=== PATIENT | female | born 1945 | race Caucasian/White ===

== ENCOUNTER 2019-11-23 17:53 | Observation (INO) ==
[2019-11-23] MEDS ORDERED: IOPAMIDOL 100 ML BOTTLE IV ONE (17:54)
[2019-11-23] MEDS ORDERED: LACTATED RINGERS 1,000 ML IV ONE (18:23)
[2019-11-23] MEDS ORDERED: ONDANSETRON 4 MG/2 ML VIAL IV ONE (18:23)
--- NOTE | 2019-11-23 18:25 | Emergency Department Note ---
Abdominal Pain HPI - General Chief Complaint: Abdominal Pain Stated Complaint: ABDOMINAL PAIN Time Seen by Provider: 11/23/19 17:58 Source: patient Mode of arrival: ambulatory Limitations: no limitations - History of Present Illness HPI Narrative: This patient started having abdominal crampy pain this morning about 10 AM. No diarrhea and has been passing some gas and has slight nausea but no vomiting. No previous abdominal surgery. Pain is diffuse and crampy in the periumbilical to epigastric region. - Related Data Home Medications Medication Instructions Recorded Confirmed ascorbate calcium (vitamin C) 500 1 g PO QDAY tab 11/22/19 11/22/19 mg tablet duloxetine 30 mg capsule,delayed 30 mg PO QDAY 11/22/19 11/22/19 release duloxetine 60 mg capsule,delayed 60 mg PO QDAY 11/22/19 11/22/19 release ergocalciferol (vitamin D2) 2,000 2,000 unit PO QDAY 11/22/19 11/22/19 unit tablet ergocalciferol (vitamin D2) 400 400 unit PO QDAY 11/22/19 unit tablet gabapentin 300 mg capsule 1,800 mg PO QDAY cap 11/22/19 11/22/19 guaifenesin 400 mg tablet 400 mg PO QDAY tab 11/22/19 11/22/19 omega-3 fatty acids 1,000 mg 2,000 mg PO QDAY 11/22/19 11/22/19 capsule polyethylene glycol 3350 17 17 g PO ONCE PRN g 11/22/19 11/22/19 gram/dose oral powder propranolol 20 mg tablet 60 mg PO QDAY tab 11/22/19 11/22/19 terbinafine HCl 250 mg tablet 250 mg PO QDAY 11/22/19 tizanidine 2 mg capsule 4 mg PO QHS cap 11/22/19 11/22/19 verapamil 120 mg tablet,extended 120 mg PO QPM tab 11/22/19 11/22/19 release Previous Rx's Medication Instructions Recorded verapamil 120 mg 24 hr 120 mg PO QHS #30 cap 11/17/19 capsule,extended release Allergies Allergy/AdvReac Type Severity Reaction Status Date / Time omeprazole Allergy Severe Cognitive Verified 11/23/19 17:58 Impairment tetracycline Allergy Severe Unknown Verified 11/23/19 17:58 carbidopa [From Sinemet] Allergy Intermediate Hives Verified 11/23/19 17:58 levodopa [From Sinemet] Allergy Intermediate Hives Verified 11/23/19 17:58 Review of Systems All systems ED: reviewed and negative except as stated. Abdominal Pain PMH - Past Medical History [facility] Narrative: Medical History (Last Updated 11/22/19 @ 11:49 by Soila Licona) Fatigue (Chronic) Depression (Chronic) Hyperlipidemia (Chronic) DDD (degenerative disc disease), cervical (Chronic) Adnexal mass (Chronic) Ingrowing nail (Chronic) Onychomycosis (Chronic) Charcot's joint of foot (Chronic) Neck pain (Chronic) Low back pain (Chronic) Tremor (Chronic) Osteoarthritis (Chronic) IBS (irritable bowel syndrome) (Chronic) Constipation (Chronic) Dysphagia (Chronic) Impingement syndrome, shoulder, left (Chronic ~08/2012) Raynauds phenomenon (Chronic) PMR (polymyalgia rheumatica) (Chronic) Fibromyalgia (Chronic) Chronic migraine without aura, intractable, without status migrainosus (Chronic) Past Surgical History (Last Updated 11/22/19 @ 11:49 by Soila Licona) H/O elbow surgery (Chronic) H/O shoulder surgery (Chronic) History of tonsillectomy (Chronic) Hx of cataract surgery (Chronic) Family History (Last Updated 11/22/19 @ 11:45 by Soila Licona) Other No pertinent family history - Social History Smoking status: Former smoker Physical Exam Limitations: no limitations General appearance: alert Head: atraumatic Eye: Present: normal appearance ENT: Present: normal exam Neck: Present: normal inspection Chest: Present: normal inspection Respiratory: Present: normal lung sounds bilaterally Cardiovascular: Present: regular rate, normal rhythm, normal heart sounds Abdominal: Present: soft, tenderness, guarding, hyperactive bowel sounds. Absent: distention Neurological: Present: alert Psychiatric: Present: normal affect Skin: Present: warm, dry Course Vital Signs Temperature 95.7 F L 11/23/19 17:53 Pulse Rate 65 11/23/19 17:53 Respiratory Rate 22 11/23/19 17:53 Blood Pressure 150/76 11/23/19 17:53 Pulse Oximetry (%) 100 11/23/19 17:53 Temperature 95.7 F L 11/23/19 17:53 Pulse Rate 67 11/23/19 19:31 Respiratory Rate 22 11/23/19 17:53 Blood Pressure 123/71 11/23/19 19:31 Pulse Oximetry (%) 99 11/23/19 19:31 Abdominal Pain - MDM Narrative Medical decision making narrative: This patient has a cecal volvulus and I discussed the case with the surgeon Dr. Singleton who will admit her to the hospital. - Lab Data Lab results reviewed: Yes I reviewed the patient's lab results. Result diagrams: 11/23/19 18:33 11/23/19 18:33 Lab Results 11/23/19 11/23/19 11/23/19 Range/Units 18:10 18:33 18:33 WBC 6.8 (4.50-11.00) K/mcL RBC 4.76 (3.59-5.38) M/mcL Hgb 14.1 (11.2-15.7) g/dL Hct 41.2 (34.1-44.9) % MCV 86.6 (80.0-100.0) fL MCH 29.6 (26.0-34.0) pg MCHC 34.2 (31.0-36.0) g/dL RDW 14.0 (11.5-14.5) % Plt Count 262 (140-440) K/mcL MPV 10.1 (7.4-10.4) fL Gran % 63.0 (38.0-78.0) % Lymph % (Auto) 25.3 (15.5-49.0) % [place] % (Auto) 8.8 (1.0-12.0) % Eos % (Auto) 2.5 (0.0-7.0) % Baso % (Auto) 0.4 (0.0-2.0) % Gran # 4.28 (1.80-8.00) K/mcL Lymph # (Auto) 1.72 (1.50-4.80) K/mcL [place] # (Auto) 0.60 (0.10-0.90) K/mcL Eos # (Auto) 0.17 (0.00-0.70) K/mcL Baso # (Auto) 0.03 (0.00-0.30) K/mcL Sodium 137 (133-145) mmol/L Potassium 4.4 (3.3-5.1) mmol/L Chloride 99 (96-108) mmol/L Carbon Dioxide 23 (22-30) mmol/L Anion Gap 15.0 (8-16) BUN 15 (8-23) mg/dl Creatinine 0.9 (0.6-1.1) mg/dl GFR Calculation 63 Glucose 107 H (70-105) mg/dL Calcium 9.7 (8.6-10.4) mg/dl Total Bilirubin 0.3 (0.0-1.0) mg/dL AST 33 (0-37) U/l ALT 29 (0-40) U/l Alkaline Phosphatase 62 (39-117) U/L Total Protein 7.0 (5.9-8.4) gm/dL Albumin 4.4 (3.2-5.2) gm/dL Globulin 2.6 (2.2-3.7) gm/dL Albumin/Globulin Ratio 1.7 (1.0-2.3) Urine Color Yellow Urine Appearance Clear Urine pH 7.0 (5.0-9.0) Ur Specific [place] 1.017 (1.000-1.035) Urine Protein Neg (NEG) mg/dL Urine Glucose (UA) Negative (NEG) mg/dL Urine Ketones Neg (NEG) mg/dL Urine Occult Blood Neg (<0.03) mg/dL Urine Nitrate Neg (NEG) Urine Bilirubin Neg (NEG) mg/dL Urine Urobilinogen Neg (NEG) mg/dL Ur Leukocyte Esterase Neg (NEG) /uL Urine RBC 3 H (0-1) /hpf Urine WBC 1 (0-4) /hpf Ur Squamous Epith Cells 0 (0-4) /hpf Urine Bacteria 0 (0) /hpf Ur Culture Indicated? No - Radiology Data Radiology results reviewed: Yes I reviewed the patient's radiology results. Disposition Pt seen by PLANING MACHINE OPERATOR/PA only: No Clinical Impression: Cecal volvulus Disposition: Home, Self-Care Condition: Good Referrals: Tino López MD [Primary Care Provider] - Time of Disposition: 21:06
[2019-11-23] MEDS ORDERED: HYDROmorphone 2 MG/ML VIAL IV SCH (18:30)
[2019-11-23 19:09] LABS: Basophils # (Auto) 0.03 K/mcL (0.00-0.30); Basophils % (Auto) 0.4 % (0.0-2.0); Eosinophils # (Auto) 0.17 K/mcL (0.00-0.70); Eosinophils % (Auto) 2.5 % (0.0-7.0); Hematocrit 41.2 % (34.1-44.9); Hemoglobin 14.1 g/dL (11.2-15.7); Lymphocytes # (Auto) 1.72 K/mcL (1.50-4.80); Lymphocytes % (Auto) 25.3 % (15.5-49.0); Mean Cell Volume 86.6 fL (80.0-100.0); Mean Corpuscular HGB Conc 34.2 g/dL (31.0-36.0); Mean Platelet Volume 10.1 fL (7.4-10.4); Monocytes % (Auto) 8.8 % (1.0-12.0); Platelet Count 262 K/mcL (140-440); RBC 4.76 M/mcL (3.59-5.38); WBC 6.8 K/mcL (4.50-11.00)
[2019-11-23 19:17] LABS: Appearance,Urine CLEAR; Bacteria,Urine 0 /hpf (0); Bilirubin,Urine NEG (NEG); Color,Urine YELLOW; Culture Indicated,Urine NO; Glucose,Urine (UA) NEGATIVE (NEG); Ketones,Urine NEG (NEG); Leukocyte Esterase,Urine NEG /uL (NEG); Nitrate,Urine NEG (NEG); Protein,Urine NEG (NEG); Specific Gravity,Urine 1.017 (1.000-1.035); Urine Blood NEG mg/dL (<0.03); Urine RBC 3 /hpf (0-1); Urine Squamous Epithelial Cell 0 /hpf (0-4); Urine WBC 1 /hpf (0-4); Urobilinogen,Urine NEG (NEG)
[2019-11-23 19:28] LABS: ALT/SGPT 29 U/l (0-40); AST/SGOT 33 U/l (0-37); Albumin 4.4 gm/dL (3.2-5.2); Albumin/Globulin Ratio 1.7 (1.0-2.3); Alkaline Phosphatase 62 U/L (39-117); Bilirubin,Total 0.3 mg/dL (0.0-1.0); Blood Urea Nitrogen 15 mg/dl (8-23); Calcium 9.7 mg/dl (8.6-10.4); Carbon Dioxide 23 mmol/L (22-30); Chloride 99 mmol/L (96-108); Globulin 2.6 gm/dL (2.2-3.7); Glomerular Filtration Rate 63; Glucose 107 mg/dL (70-105)
[2019-11-23] MEDS ORDERED: PIPERACILLIN SODIUM/TAZOBACTAM 3.375 GM in DEXTROSE 5% IN WATER 50 ML IV ONE (21:03)
[2019-11-23] MEDS ORDERED: PROMETHAZINE 25 MG/ML VIAL IM PRN (21:04)
[2019-11-23] MEDS ORDERED: DIATRIZOATE MEGLU/DIATRIZO SOD 30 ML BOTTLE PO ONE (23:26)
--- NOTE | 2019-11-24 00:01 | General Surg History&Physical ---
History of Present Illness Patient information: Note initiated : 11/23/19 at 11:59 pm Service Date, if different from initiated Date: [] Patient: Adrian Bowens a 74 y/o F admitted on 11/23/19 for ABDOMINAL PAIN. Chief Complaint: [] HPI: Ms. Bowens is a 74 year old F admitted for evaluation of abdominal pain. The patient had onset of severe right upper quadrant pain about 10 AM on the day of admission. The pain moved to the left upper quadrant and then became more diffuse. She took some Pepto-Bismol because she thought she was constipated. The pain increased in intensity. She also took some [id number] acid reducers without improvement. She developed nausea but did not have any vomiting. She had bowel movements on the morning of admission and has been passing flatus. When seen in the emergency room, a CT was done which reportedly showed volvulus of the cecum with possible vascular compromise, however. Her white blood count is normal and her lactate is normal. Patient is admitted and be observed. I will get a second opinion on the reading of the CT before doing any other diagnostic studies. Labs will also be repeated in the morning. Review of Systems - Constitutional headache(s) (history of chronic migraine headaches), malaise - EENT Nose, mouth and throat: no dizziness - Cardiovascular no chest pain, no dyspnea, no irregular heart rhythm, no palpatations, no pedal edema - Respiratory no cough, no dyspnea on exertion, no wheezing, no stridor, no chest congestion - Gastrointestinal abdominal pain, bloating, constipation, dyspepsia, heartburn, melena, nausea - Genitourinary Genitourinary: no dysuria, no urinary frequency, no urinary hesitancy, no urinary urgency - Musculoskeletal back pain, muscle cramps, myalgias, no abnormal gait - Integumentary no new lesions, no pruritus, no rash - Neurological headache(s), tremor(s), no confusion, no disequilibrium, no dizziness, no syncope - Psychiatric no anxiety, no depression - Endocrine no fatigue, no palpitations - Hematologic/Lymphatic no easy bleeding, no easy bruising, no lymphadenopathy - Allergic/Immunologic no tongue swelling, no throat swelling, no uticaria, no wheezing, no lip swelling Past History Past medical history: History of atrial fibrillation. Chronic depression Irritable bowel syndrome. Osteoarthritis. History of polymyalgia rheumatica Past surgical history: Right elbow surgery as an infant Past family history: Father age 69 due to carcinoma of lung. Mother age 75 due to carcinoma of lung Past social history: Former smoker. Denies alcohol use. Denies drug use Medications and Allergies Home Medications Medication Instructions Recorded Confirmed Type ascorbate calcium (vitamin C) 500 1 tab PO BID tab 11/22/19 11/24/19 History mg tablet duloxetine 30 mg capsule,delayed 30 mg PO QDAY 11/22/19 11/24/19 History release duloxetine 60 mg capsule,delayed 60 mg PO QDAY 11/22/19 11/24/19 History release ergocalciferol (vitamin D2) 2,000 2,000 unit PO PRN PRN 11/22/19 11/24/19 History unit tablet guaifenesin 400 mg tablet 400 mg PO QDAY tab 11/22/19 11/24/19 History verapamil 120 mg tablet,extended 240 mg PO QPM tab 11/22/19 11/24/19 History release Aspirin [Lo-Dose Aspirin EC] 81 mg PO TUTH 11/23/19 11/24/19 History Calcium Carbonate [Calcium] 500 mg PO BID 11/23/19 11/24/19 History Fish Oil/Dha/Epa [Fish Oil 1,200 1 tab PO BID 11/23/19 11/24/19 History mg Fish Oil] Garlic [Garlic Oil] 1,000 mg PO DAILY 11/23/19 11/24/19 History Multivitamin [One-Daily 1 tab PO DAILY 11/23/19 11/24/19 History Multi-Vitamin] Saccharomyces Boulardii [Daily 1 tab PO DAILY 11/23/19 11/24/19 History Probiotic] Vitamin D3 1,000 unit PO PRN PRN 11/23/19 11/24/19 History Cimetidine [Heartburn Relief] 200 mg PO BID PRN 11/24/19 11/24/19 History Gabapentin [Neurontin] 300 mg PO 1330 11/24/19 11/24/19 History Gabapentin [Neurontin] 600 mg PO QAM 11/24/19 11/24/19 History Gabapentin [Neurontin] 900 mg PO HS 11/24/19 11/24/19 History Allergies Allergy/AdvReac Type Severity Reaction Status Date / Time omeprazole Allergy Severe Cognitive Verified 11/24/19 02:38 Impairment carbidopa [From Sinemet] Allergy Mild Hives Verified 11/24/19 06:58 levodopa [From Sinemet] Allergy Mild Hives Verified 11/24/19 06:58 tetracycline Allergy Unknown Unknown Verified 11/24/19 06:58 Exam Temp Pulse Resp BP Pulse Ox 95.7 F L 77 22 118/89 99 11/23/19 17:53 11/23/19 23:16 11/23/19 17:53 11/23/19 23:16 11/23/19 23:16 - General physical appearance well developed, well nourished, no distress, moderate distress, moderate pain - Eyes PERRL, normal ocular movement - ENT normal pinna, normal nares, normal mucosa, no hearing loss, no congestion - Head Head exam IM: Present: atraumatic, normocephalic - Neck no masses, no bruits, trachea midline, no lymphadenopathy, no venous distension - Cardiovascular Cardiovascular exam IM: Present: RRR, +S1, +S2. Absent: irregular rhythm, JVD, tachycardia - Respiratory normal expansion, normal respiratory effort, clear to auscultation - Abdomen Abdomen: Present: soft, tender (tenderness right upper quadrant and epigastrium), bowel sounds, distended (mild distention of lower abdomen) Hernia: Present: none - Genitourinary Present: normal external genitalia - Integumentary Present: no rash, no growths, no abnormal pigmentation - Neurologic Present: normal coordination, normal sensation - Musculoskeletal Present: normal gait, normal posture - Psychiatric Present: oriented to time, oriented to person, oriented to place, speech is normal, memory intact Assessment and Plan (1) Acute generalized abdominal pain The patient has significant upper abdominal pain. Though she has the diagnosis of cecal volvulus . The radiographic findings do not support a twisting of the right colon or cecum. Though the cecum is malposition in the left Upper quadrant. The patient does have a large fecal burden, though there is gas extending to the rectum. There is no small bowel dilation. Will hold off other testing until I can get a more definitive read of her CT by our home radiologist Status: Acute (2) IBS (irritable bowel syndrome) Status: Chronic (3) Constipation We will do intestinal cleansing followed by small bowel follow-through if patient does not have a clinical volvulus. Status: Chronic
[2019-11-24] MEDS: 0.9 % SODIUM CHLORIDE 1,000 ML IV SCH ×5 (00:43→23:23)
--- NOTE | 2019-11-24 03:16 | Cat Scan Report ---
CLINICAL INFORMATION: Abdominal pain COMPARISON: None. TECHNIQUE: Following enteric contrast, 80 cc of Isovue-370 were injected intravenously, and 60 seconds later, 0.625 mm helical slices were obtained from the mid heart through the subtrochanteric regions. Following reconstruction, 2.5 mm sagittal, coronal and axial reformatted images were processed and reviewed at bone, lung and soft tissue windows. Five minutes later, 0.625 mm helical slices were obtained from the mid heart through the kidneys and viewed at soft tissue windows.The exam was performed using radiation dose optimization techniques including, but not limited to, automated exposure control, adjustment of the mA and/or kV according to patient size and use of iterative reconstruction technique. FINDINGS: The lung bases show only subsegmental atelectasis in both posterior lower lobes. No effusion. The visualized heart is grossly normal. Abdominal images of the liver is unremarkable. Gallbladder is normal. The common bile and pancreatic ducts are mildly dilated: CBD is 9 mm and the pancreatic duct is 4 mm. There is smooth tapering of both ducts at the ampullary region. There is no stone mass or other cause identified for duct obstruction. The pancreas is, otherwise, unremarkable. Both kidneys, adrenal glands, spleen and aorta, including aortic branches are normal in size configuration and attenuation without focal lesion. There is no free air, free fluid or adenopathy. Pelvic images show urinary bladder is unremarkable. A normal postmenopausal retroflexed uterus is appreciated. Atrophic ovaries are unremarkable. The cecum is extraordinarily mobile and is located in the left upper quadrant. There is; however, no evidence of cecal dilatation, mesenteric twisting, wall edema or other evidence supporting the diagnosis of cecal volvulus. The stomach small and large bowel show mild symmetric dilatation compatible with mild ileus and there is a moderate amount of colonic stool. No evidence of bowel obstruction. A 4 cm broad mouthed diverticulum is seen within a small bowel loop in the central false pelvis on image 104. Bone windows show lumbar degenerative change no focal osseous lesion IMPRESSION: 1. Hypermobile cecum on a long mesentery with ectopic cecal location in the left upper quadrant. There is, however, no supportive CT evidence for associated cecal volvulus. 2. Mild ileus with moderate colonic stool. 3. Moderate dilatation of the common bile and pancreatic duct. No evidence of stone mass or other cause for obstruction the ampullary level. Patient may have papillary stenosis. If there is clinical support for ductal obstruction, abdominal MRI/MRCP could be performed. 4. 4 cm broad mouthed diverticulum in the mid ileum in the central false pelvis Interpreted and Authenticated by: Nile Hess 11/24/19
[2019-11-24 06:32] LABS: Basophils # (Auto) 0.03 K/mcL (0.00-0.30); Basophils % (Auto) 0.4 % (0.0-2.0); Eosinophils # (Auto) 0.18 K/mcL (0.00-0.70); Eosinophils % (Auto) 2.6 % (0.0-7.0); Granulocytes % (Auto) 62.8 % (38.0-78.0); Hematocrit 37.9 % (34.1-44.9); Hemoglobin 12.7 g/dL (11.2-15.7); Lymphocytes # (Auto) 1.77 K/mcL (1.50-4.80); Lymphocytes % (Auto) 25.2 % (15.5-49.0); Mean Cell Volume 88.1 fL (80.0-100.0); Mean Corpuscular HGB Conc 33.5 g/dL (31.0-36.0); Mean Platelet Volume 10.1 fL (7.4-10.4); Monocytes # (Auto) 0.63 K/mcL (0.10-0.90); Platelet Count 207 K/mcL (140-440); Red Cell Distribution Width 14.5 % (11.5-14.5)
[2019-11-24 06:36] LABS: ALT/SGPT 19 U/l (0-40); AST/SGOT 21 U/l (0-37); Albumin 3.5 gm/dL (3.2-5.2); Albumin/Globulin Ratio 1.6 (1.0-2.3); Alkaline Phosphatase 51 U/L (39-117); Bilirubin,Direct < 0.2 mg/dL (0.0-0.3); Bilirubin,Total 0.3 mg/dL (0.0-1.0); Blood Urea Nitrogen 11 mg/dl (8-23); C-Reactive Protein < 0.3 mg/dl (0.0-0.8); Calcium 8.6 mg/dl (8.6-10.4); Carbon Dioxide 25 mmol/L (22-30); Chloride 105 mmol/L (96-108); Globulin 2.2 gm/dL (2.2-3.7); Glomerular Filtration Rate 63; Glucose 87 mg/dL (70-105); Lactate Dehydrogenase 150 U/L (94-250); Phosphorous 3.5 mg/dL (2.7-4.5); Triglycerides 225 mg/dl (<150); Uric Acid 3.7 mg/dL (2.5-8.0)
[2019-11-24] MEDS: HYDROmorphone 2 MG/ML VIAL IV PRN ×3 (07:27→16:07)
--- NOTE | 2019-11-24 08:43 | XRay Report ---
CLINICAL INFORMATION: FOLLOW -UP OF POSSIBLE CECAL VOLVULUS COMPARISON: None. FINDINGS: Stool gas pattern is unremarkable - no evidence of cecal volvulus. No free air, pathologic calcification or soft tissue mass IMPRESSION: Negative Interpreted and Authenticated by: Nile Hess 11/24/19
--- NOTE | 2019-11-24 12:20 | General Surgery Progress Note ---
Subjective Patient reports: feels better, still having pain, pain is less, flatus, afebrile Narrative: Note initiated : 11/24/19 at 12:18 pm Service Date, if different from initiated Date: [] Patient: Adrian Bowens 74 y/o F admitted on 11/23/19 for ABDOMINAL PAIN. Chief Complaint: [Patient states that she feels better. She has less lower abdominal discomfort but is still operator in the right upper quadrant and epigastrium. Her abdominal distention is significantly improved. Discussed her CT findings with our radiologist. 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 but without volvulus.] Objective Temp Pulse Resp BP Pulse Ox 98.3 F 74 18 118/72 97 11/24/19 07:06 11/24/19 07:06 11/24/19 07:06 11/24/19 07:06 11/24/19 07:06 - Additional Data Intake & Output - Last 24 hours: Intake & Output 11/22/19 11/23/19 11/24/19 11/25/19 05:59 05:59 05:59 05:59 Intake Total 1050 1000 Output Total 675 Balance 375 1000 Weight 106 lb - General physical appearance no distress, moderate pain - Eyes PERRL, normal ocular movement - ENT normal pinna, normal nares, normal mucosa, no hearing loss, no congestion - Neck no masses, no bruits, trachea midline, no lymphadenopathy, no venous distension - Respiratory normal expansion, normal respiratory effort, clear to auscultation - Cardiovascular Cardiovascular exam: Present: normal rate and rhythm, RRR, +S1, +S2. Absent: JVD, tachycardia - Abdomen tender (persistent tenderness epigastrium and right upper quadrant; also mild tenderness in left upper quadrant) - Genitourinary normal perineum - Rectum normal sphincter tone, no hemorrhoids, no tenderness, no masses, no bleeding - Integumentary no rash, no growths, no abnormal pigmentation - Neurologic normal coordination, normal sensation - Musculoskeletal normal gait, normal posture - Psychiatric oriented to time, oriented to person, oriented to place, speech is normal, memory intact - Labs 11/24/19 05:30 11/24/19 05:30 Diabetes panel 11/23/19 11/24/19 Range/Units 18:33 05:30 Sodium 137 139 (133-145) mmol/L Potassium 4.4 4.0 (3.3-5.1) mmol/L Chloride 99 105 (96-108) mmol/L Carbon Dioxide 23 25 (22-30) mmol/L BUN 15 11 (8-23) mg/dl Creatinine 0.9 0.9 (0.6-1.1) mg/dl Glucose 107 H 87 (70-105) mg/dL Calcium 9.7 8.6 (8.6-10.4) mg/dl AST 33 21 (0-37) U/l ALT 29 19 (0-40) U/l Alkaline Phosphatase 62 51 (39-117) U/L Total Protein 7.0 5.7 L (5.9-8.4) gm/dL Albumin 4.4 3.5 (3.2-5.2) gm/dL Triglycerides 225 H (<150) mg/dl Calcium panel 11/23/19 11/24/19 Range/Units 18:33 05:30 Calcium 9.7 8.6 (8.6-10.4) mg/dl Phosphorus 3.5 (2.7-4.5) mg/dL Albumin 4.4 3.5 (3.2-5.2) gm/dL Pituitary panel 11/23/19 11/24/19 Range/Units 18:33 05:30 Sodium 137 139 (133-145) mmol/L Potassium 4.4 4.0 (3.3-5.1) mmol/L Chloride 99 105 (96-108) mmol/L Carbon Dioxide 23 25 (22-30) mmol/L BUN 15 11 (8-23) mg/dl Creatinine 0.9 0.9 (0.6-1.1) mg/dl Glucose 107 H 87 (70-105) mg/dL Calcium 9.7 8.6 (8.6-10.4) mg/dl Adrenal panel 11/23/19 11/24/19 Range/Units 18:33 05:30 Sodium 137 139 (133-145) mmol/L Potassium 4.4 4.0 (3.3-5.1) mmol/L Chloride 99 105 (96-108) mmol/L Carbon Dioxide 23 25 (22-30) mmol/L BUN 15 11 (8-23) mg/dl Creatinine 0.9 0.9 (0.6-1.1) mg/dl Glucose 107 H 87 (70-105) mg/dL Calcium 9.7 8.6 (8.6-10.4) mg/dl Total Bilirubin 0.3 0.3 (0.0-1.0) mg/dL AST 33 21 (0-37) U/l ALT 29 19 (0-40) U/l Alkaline Phosphatase 62 51 (39-117) U/L Total Protein 7.0 5.7 L (5.9-8.4) gm/dL Albumin 4.4 3.5 (3.2-5.2) gm/dL Assessment and Plan (1) Acute generalized abdominal pain Status: Acute Assessment and plan: He'll get gallbladder ultrasound MiraLAX for colonic cleansing. Small bowel follow-through to be performed tomorrow Current Visit: Yes (2) IBS (irritable bowel syndrome) Status: Chronic Assessment and plan: Will start dicyclomine 4 times a day Current Visit: No (3) Constipation Status: Chronic Assessment and plan: MiraLAX for severe constipation Current Visit: No - Time Spent With Patient Total time spent is greater than 50% in coordination of care (as documented) at patient's floor/unit and/or counseling patient:
[2019-11-24] MEDS ORDERED: POLYETHYLENE GLYCOL 3350 17 GM PACKET PO SCH (12:43)
[2019-11-24] MEDS: GABAPENTIN 300 MG CAPSULE PO SCH ×2 (13:41→21:09)
[2019-11-24] MEDS: DICYCLOMINE 20 MG TABLET PO SCH ×3 (13:41→21:10)
[2019-11-24] MEDS: POLYETHYLENE GLYCOL 3350 17 GM PACKET PO SCH ×5 (13:42→22:47)
--- NOTE | 2019-11-24 14:50 | Ultrasound Report ---
CLINICAL INFORMATION: Abdominal pain COMPARISON: None. FINDINGS: Gallbladder is normal in size and wall thickness. No stone or focal tenderness. Common bile duct is dilated - 10 mm. No evidence of choledocholithiasis but the intrapancreatic common bile duct is not visualized. The liver and pancreas are unremarkable. Moderate dilatation pancreatic duct is 4 mm IMPRESSION: Gallbladder is unremarkable. Moderate dilatation of the common bile and pancreatic duct also noted on CT. No stone or mass identified in the pancreatic head, however this area is not well visualized on ultrasound. Interpreted and Authenticated by: Nile Hess 11/24/19
[2019-11-24] MEDS: PROMETHAZINE 25 MG/ML VIAL IV PRN ×2 (16:06→23:23)
[2019-11-25] MEDS: POLYETHYLENE GLYCOL 3350 17 GM PACKET PO SCH (03:53)
[2019-11-25] MEDS: 0.9 % SODIUM CHLORIDE 1,000 ML IV SCH ×4 (05:58→21:33)
[2019-11-25 07:53] LABS: Basophils # (Auto) 0.03 K/mcL (0.00-0.30); Basophils % (Auto) 0.3 % (0.0-2.0); Eosinophils # (Auto) 0.08 K/mcL (0.00-0.70); Eosinophils % (Auto) 0.9 % (0.0-7.0); Granulocytes % (Auto) 78.9 % (38.0-78.0); Hematocrit 36.5 % (34.1-44.9); Hemoglobin 12.1 g/dL (11.2-15.7); Lymphocytes % (Auto) 11.8 % (15.5-49.0); Mean Cell Volume 88.2 fL (80.0-100.0); Mean Corpuscular HGB Conc 33.2 g/dL (31.0-36.0); Mean Platelet Volume 10.4 fL (7.4-10.4); Monocytes # (Auto) 0.75 K/mcL (0.10-0.90); Monocytes % (Auto) 8.1 % (1.0-12.0); Platelet Count 188 K/mcL (140-440); RBC 4.14 M/mcL (3.59-5.38); Red Cell Distribution Width 14.6 % (11.5-14.5); WBC 9.3 K/mcL (4.50-11.00)
[2019-11-25 08:33] LABS: ALT/SGPT 18 U/l (0-40); AST/SGOT 22 U/l (0-37); Albumin 3.5 gm/dL (3.2-5.2); Albumin/Globulin Ratio 1.6 (1.0-2.3); Alkaline Phosphatase 52 U/L (39-117); Bilirubin,Direct < 0.2 mg/dL (0.0-0.3); Bilirubin,Total 0.3 mg/dL (0.0-1.0); Calcium 8.4 mg/dl (8.6-10.4); Carbon Dioxide 23 mmol/L (22-30); Chloride 105 mmol/L (96-108); Globulin 2.2 gm/dL (2.2-3.7); Glomerular Filtration Rate 85; Glucose 110 mg/dL (70-105); Lactate Dehydrogenase 178 U/L (94-250); Phosphorous 2.8 mg/dL (2.7-4.5); Triglycerides 143 mg/dl (<150)
[2019-11-25 08:38] LABS: Blood Urea Nitrogen 6 mg/dl (8-23)
[2019-11-25] MEDS ORDERED: NON FORMULARY MEDICATION 1 DOSE MISCELL (Duloxetine Hcl [Cymbalta] 60 MG) PO SCH (09:00)
[2019-11-25] MEDS ORDERED: POLYETHYLENE GLYCOL 3350 17 GM PACKET PO SCH (09:00)
[2019-11-25] MEDS: PROMETHAZINE 25 MG/ML VIAL IV PRN (09:23)
[2019-11-25] MEDS: DULoxetine 30 MG CAPSULE PO SCH (09:27)
[2019-11-25] MEDS: GABAPENTIN 300 MG CAPSULE PO SCH ×3 (09:28→21:18)
[2019-11-25] MEDS: DICYCLOMINE 20 MG TABLET PO SCH ×4 (09:28→21:17)
[2019-11-25] MEDS ORDERED: BUTALB/ACETAMINOPHEN/CAFFEINE 1 TABLET PO PRN (10:09)
--- NOTE | 2019-11-25 17:17 | General Surgery Progress Note ---
Subjective Patient reports: feels better, still having pain, pain is less, tolerating liquids well, flatus, bowel movement, diarrhea, afebrile Narrative: Note initiated : 11/25/19 at 5:15 pm Service Date, if different from initiated Date: [] Patient: Adrian Bowens 74 y/o F admitted on 11/23/19 for ABDOMINAL PAIN. Chief Complaint: [Patient feels better though she still has some upper abdominal pain. The severity of pain in the right upper quadrant is less. She responded well to the MiraLAX followed by small bowel follow-through and has had at least 12 large liquid bowel movements. Her abdomen is significantly softer. White count is 9.3, hemoglobin 12.1, BUN 6, creatinine 0.7.] Objective Temp Pulse Resp BP Pulse Ox 98.2 F 76 16 138/70 98 11/25/19 12:00 11/25/19 12:00 11/25/19 12:00 11/25/19 12:00 11/25/19 12:00 - Additional Data Intake & Output - Last 24 hours: Intake & Output 11/23/19 11/24/19 11/25/19 11/26/19 05:59 05:59 05:59 05:59 Intake Total 1050 5250 400 Output Total 675 1875 2351 Balance 375 3375 -1951 Weight 106 lb 109 lb 8 oz - General physical appearance well developed, well nourished, no distress, moderate pain - Eyes PERRL, normal ocular movement - ENT normal pinna, normal nares, normal mucosa, no hearing loss, no congestion - Neck no masses, no bruits, trachea midline, no lymphadenopathy, no venous distension - Respiratory normal expansion, normal respiratory effort, clear to auscultation - Cardiovascular Cardiovascular exam: Present: normal rate and rhythm, RRR, +S1, +S2. Absent: JVD, tachycardia - Abdomen tender (mild tenderness in epigastrium and right upper quadrant; abdomen is much softer; hyperactive bowel sounds) - Integumentary no rash, no growths, no abnormal pigmentation - Neurologic normal coordination, normal sensation - Musculoskeletal normal gait, normal posture - Psychiatric oriented to time, oriented to person, oriented to place, speech is normal, memory intact - Labs 11/25/19 05:42 11/25/19 05:42 Diabetes panel 11/25/19 Range/Units 05:42 Sodium 139 (133-145) mmol/L Potassium 3.9 (3.3-5.1) mmol/L Chloride 105 (96-108) mmol/L Carbon Dioxide 23 (22-30) mmol/L BUN 6 L (8-23) mg/dl Creatinine 0.7 (0.6-1.1) mg/dl Glucose 110 H (70-105) mg/dL Calcium 8.4 L (8.6-10.4) mg/dl AST 22 (0-37) U/l ALT 18 (0-40) U/l Alkaline Phosphatase 52 (39-117) U/L Total Protein 5.7 L (5.9-8.4) gm/dL Albumin 3.5 (3.2-5.2) gm/dL Triglycerides 143 (<150) mg/dl Calcium panel 11/25/19 Range/Units 05:42 Calcium 8.4 L (8.6-10.4) mg/dl Phosphorus 2.8 (2.7-4.5) mg/dL Albumin 3.5 (3.2-5.2) gm/dL Pituitary panel 11/25/19 Range/Units 05:42 Sodium 139 (133-145) mmol/L Potassium 3.9 (3.3-5.1) mmol/L Chloride 105 (96-108) mmol/L Carbon Dioxide 23 (22-30) mmol/L BUN 6 L (8-23) mg/dl Creatinine 0.7 (0.6-1.1) mg/dl Glucose 110 H (70-105) mg/dL Calcium 8.4 L (8.6-10.4) mg/dl Adrenal panel 11/25/19 Range/Units 05:42 Sodium 139 (133-145) mmol/L Potassium 3.9 (3.3-5.1) mmol/L Chloride 105 (96-108) mmol/L Carbon Dioxide 23 (22-30) mmol/L BUN 6 L (8-23) mg/dl Creatinine 0.7 (0.6-1.1) mg/dl Glucose 110 H (70-105) mg/dL Calcium 8.4 L (8.6-10.4) mg/dl Total Bilirubin 0.3 (0.0-1.0) mg/dL AST 22 (0-37) U/l ALT 18 (0-40) U/l Alkaline Phosphatase 52 (39-117) U/L Total Protein 5.7 L (5.9-8.4) gm/dL Albumin 3.5 (3.2-5.2) gm/dL Assessment and Plan (1) Acute generalized abdominal pain Status: Acute Assessment and plan: Full liquid diet. 2 view abdominal x-rays in a Acetaminophen 1 g IV every 6 hours Current Visit: Yes (2) IBS (irritable bowel syndrome) Status: Chronic Assessment and plan: Continue dicyclomine 4 times a day Current Visit: No (3) Constipation Status: Resolved Assessment and plan: Constipation, resolved Current Visit: No - Time Spent With Patient Total time spent is greater than 50% in coordination of care (as documented) at patient's floor/unit and/or counseling patient:
--- NOTE | 2019-11-25 17:29 | XRay Report ---
CLINICAL INFORMATION: Abdominal pain and distention. Evaluate for bowel obstruction TECHNIQUE: Statistical Machine Servicer image of the abdomen was obtained. Water subtle contrast was ingested and multiple films were obtained the with contrast within the colon. Small bowel transit time is approximately one hour COMPARISON: Abdomen and pelvic CT 11/23/2019. FINDINGS: The stomach small bowel and visualized large bowel are normal in contour and caliber. There is no evidence of bowel obstruction or other focal lesion. Small bowel transit time is approximately one hour IMPRESSION: Normal exam. No evidence of cecal volvulus or other cause for bowel obstruction Interpreted and Authenticated by: Nile Hess 11/25/19
[2019-11-25] MEDS: ACETAMINOPHEN 750 MG/75 ML BOTTLE IV SCH (18:04)
[2019-11-26] MEDS: ACETAMINOPHEN 750 MG/75 ML BOTTLE IV SCH ×3 (01:56→11:35)
[2019-11-26] MEDS: 0.9 % SODIUM CHLORIDE 1,000 ML IV SCH ×2 (04:42→12:50)
[2019-11-26 06:40] LABS: ALT/SGPT 17 U/l (0-40); AST/SGOT 22 U/l (0-37); Albumin 3.1 gm/dL (3.2-5.2); Albumin/Globulin Ratio 1.5 (1.0-2.3); Alkaline Phosphatase 47 U/L (39-117); Bilirubin,Direct < 0.2 mg/dL (0.0-0.3); Bilirubin,Total 0.4 mg/dL (0.0-1.0); Blood Urea Nitrogen 5 mg/dl (8-23); Calcium 8.1 mg/dl (8.6-10.4); Carbon Dioxide 23 mmol/L (22-30); Globulin 2.1 gm/dL (2.2-3.7); Glomerular Filtration Rate 85; Glucose 83 mg/dL (70-105); Lactate Dehydrogenase 167 U/L (94-250); Triglycerides 95 mg/dl (<150); Uric Acid 2.8 mg/dL (2.5-8.0)
[2019-11-26 06:43] LABS: Chloride 111 mmol/L (96-108); Phosphorous 2.3 mg/dL (2.7-4.5)
[2019-11-26 07:01] LABS: Basophils # (Auto) 0.03 K/mcL (0.00-0.30); Basophils % (Auto) 0.6 % (0.0-2.0); Eosinophils # (Auto) 0.27 K/mcL (0.00-0.70); Eosinophils % (Auto) 5.3 % (0.0-7.0); Granulocytes % (Auto) 56.5 % (38.0-78.0); Hematocrit 35.1 % (34.1-44.9); Hemoglobin 11.4 g/dL (11.2-15.7); Lymphocytes # (Auto) 1.25 K/mcL (1.50-4.80); Lymphocytes % (Auto) 24.6 % (15.5-49.0); Mean Cell Volume 89.3 fL (80.0-100.0); Mean Corpuscular HGB Conc 32.5 g/dL (31.0-36.0); Mean Platelet Volume 10.5 fL (7.4-10.4); Monocytes # (Auto) 0.66 K/mcL (0.10-0.90); Platelet Count 175 K/mcL (140-440); RBC 3.93 M/mcL (3.59-5.38); Red Cell Distribution Width 14.8 % (11.5-14.5); WBC 5.1 K/mcL (4.50-11.00)
[2019-11-26] MEDS ORDERED: POTASSIUM PHOSPHATE 40 MEQ in DEXTROSE 5% IN WATER 500 ML IV ONE (07:26)
--- NOTE | 2019-11-26 08:29 | XRay Report ---
CLINICAL INFORMATION: FOLLOW -UP OF SMALL BOWEL OBSTRUCTION COMPARISON: None. FINDINGS: The stool gas pattern is unremarkable. There is no free air, soft tissue mass, organomegaly or pathologic calcification. IMPRESSION: Normal abdomen. Enteric contrast, given yesterday, has evacuated evacuated Interpreted and Authenticated by: Nile Hess 11/26/19
[2019-11-26] MEDS: DULoxetine 30 MG CAPSULE PO SCH (08:45)
[2019-11-26] MEDS: GABAPENTIN 300 MG CAPSULE PO SCH ×2 (08:45→12:57)
[2019-11-26] MEDS: DICYCLOMINE 20 MG TABLET PO SCH ×3 (08:46→16:56)
--- NOTE | 2019-11-26 16:38 | Discharge Summary ---
Providers - Providers Patient information: Note initiated : 11/26/19 at 4:36 pm Service Date, if different from initiated Date: [] Patient: Adrian Bowens 74 y/o F admitted on 11/23/19 for ABDOMINAL PAIN. Chief Complaint: [] Date of admission: 11/23/19 Discharge date: 11/26/19 Attending physician: Mariana Singleton Hospitalization Hospital Course: 74-year-old female admitted for evaluation of abdominal pain. The patient had acute onset of severe right upper quadrant abdominal pain about 10 AM on the day of admission. It moved to the left upper quadrant and then became more diffuse. She developed nausea but did not have vomiting. CT of the abdomen showed malrotation of the right colon with the cecum and terminal ileum in the left upper quadrant. There were no vascular mesenteric compromise. All labs normal including lactate. She did have a large volume of fecal matter in her colon so she was treated with MiraLAX and then given the small bowel follow- through. Small bowel follow-through showed easy transit through the small bowel and colon without any evidence of obstruction or stricture. Patient was given dicyclomine and monitored. Diet has been advanced. She has tolerated it well. At the present time. She has now upper abdominal discomfort but no nausea or vomiting. She is passing flatus without difficulty. She is stable for discharge home. Discharge diagnosis: right colonic malrotation Secondary discharge diagnosis: Slow transit constipation. Chronic irritable bowel syndrome. Chronic depression. History of fibromyalgia rheumatica Reason for admission: recurrent abdominal pain Procedures: None Pertinent studies/significant findings: CT of abdomen and pelvis with contrast Small bowel follow through Complications: None Exam Temp Pulse Resp BP Pulse Ox 98.9 F 82 22 132/75 96 11/26/19 16:00 11/26/19 16:00 11/26/19 16:00 11/26/19 16:11/26/19 16:00 - General physical appearance well developed, well nourished, no distress - Eyes PERRL, normal ocular movement - ENT normal pinna, normal nares, normal mucosa, no hearing loss, no congestion - Head Head exam IM: Present: atraumatic, normocephalic - Neck no masses, no bruits, trachea midline, no lymphadenopathy, no venous distension - Cardiovascular Cardiovascular exam IM: Present: normal rate and rhythm - Respiratory normal expansion, normal respiratory effort, clear to percussion, clear to auscultation - Abdomen Abdomen: Present: soft, tender (mild epigastric and right upper quadrant tenderness), bowel sounds (good active bowel sounds throughout), distended (no abdominal distention) Hernia: Present: none - Genitourinary Present: normal external genitalia - Integumentary Present: no rash, no growths, no abnormal pigmentation - Neurologic Present: normal coordination, normal sensation - Musculoskeletal Present: normal gait, normal posture - Psychiatric Present: oriented to time, oriented to person, oriented to place, speech is normal, memory intact Discharge Plan - Patient/Caregiver Discharge Instructions Activity: increase activity as tolerated Diet: Regular Diet Additional Instructions: MiraLAX 17 g in 8 ounces of liquid 2-3 times daily to prevent constipation. Follow-up in the office in 2 weeks Prescriptions: Dicyclomine 20 mg PO QID #120 tab Transmission Status: Pending to [facility] #[id number] - Follow up Plan Follow up with: Tino López MD [Primary Care Provider] - Disposition: Home, Self-Care Prognosis: Good Rehab Potential: Good I certify that the patient requires SNF services.: No Overall status at discharge: patient is progressing back to baseline Pending Studies Resuscitation Status Full Code Diet Full Liquid Diet Start FriNov 24 1323 Acetaminophen/Butalbital/Caffeine (Fioricet) 2 tab PO Q4HP PRN PRN Reason: Headache Last Admin: 11/25/19 10:16 Dose: 2 tab Documented by: [email or web address] Dicyclomine HCl (Dicyclomine) 20 mg PO QID [facility] Last Admin: 11/26/19 12:57 Dose: 20 mg Documented by: Admin: 11/26/19 08:46 Dose: 20 mg Documented by: Admin: 11/25/19 21:17 Dose: 20 mg Documented by: Admin: 11/25/19 18:04 Dose: 20 mg Documented by: Admin: 11/25/19 13:20 Dose: 20 mg Documented by: Admin: 11/25/19 09:28 Dose: 20 mg Documented by: Admin: 11/24/19 21:10 Dose: 20 mg Documented by: Admin: 11/24/19 17:13 Dose: 20 mg Documented by: Admin: 11/24/19 13:41 Dose: 20 mg Documented by: MAULIK Duloxetine HCl (Cymbalta) 90 mg PO QDAY [facility] Last Admin: 11/26/19 08:45 Dose: 90 mg Documented by: Admin: 11/25/19 09:27 Dose: 90 mg Documented by: DANELLE Gabapentin (Neurontin) 900 mg PO HS [facility] Last Admin: 11/25/19 21:18 Dose: 900 mg Documented by: Admin: 11/24/19 21:09 Dose: 900 mg Documented by: KUN Gabapentin (Neurontin) 600 mg PO QAM [facility] Last Admin: 11/26/19 08:45 Dose: 600 mg Documented by: Admin: 11/25/19 09:28 Dose: 600 mg Documented by: DANELLE Gabapentin (Neurontin) 300 mg PO 1330 [facility] Last Admin: 11/26/19 12:57 Dose: 300 mg Documented by: Admin: 11/25/19 13:20 Dose: 300 mg Documented by: Admin: 11/24/19 13:41 Dose: 300 mg Documented by: MAULIK Hydromorphone HCl (Dilaudid) 1 mg IV Q2HP PRN; Protocol PRN Reason: Per Pain Protocol Last Admin: 11/24/19 16:07 Dose: 1 mg Documented by: Admin: 11/24/19 10:16 Dose: 1 mg Documented by: Admin: 11/24/19 07:27 Dose: 1 mg Documented by: MAULIK Sodium Chloride (Sodium Chloride 0.9%) 1,000 mls @ 150 mls/hr IV .Q6H40M [facility] Last Admin: 11/26/19 12:50 Dose: Not Given Documented by: Admin: 11/26/19 04:42 Dose: 150 mls/hr Documented by: Infusion: 11/26/19 04:14 Dose: 150 mls/hr Documented by: Admin: 11/25/19 21:33 Dose: 150 mls/hr Documented by: Admin: 11/25/19 17:01 Dose: Not Given Documented by: [email or web address] Infusion: 11/25/19 12:39 Dose: 150 mls/hr Documented by: Admin: 11/25/19 11:24 Dose: Not Given Documented by: Admin: 11/25/19 05:58 Dose: 150 mls/hr Documented by: Infusion: 11/25/19 05:58 Dose: 150 mls/hr Documented by: Admin: 11/24/19 23:23 Dose: 150 mls/hr Documented by: Infusion: 11/24/19 23:23 Dose: 150 mls/hr Documented by: Admin: 11/24/19 17:14 Dose: 150 mls/hr Documented by: Admin: 11/24/19 15:23 Dose: Not Given Documented by: Infusion: 11/24/19 14:08 Dose: 150 mls/hr Documented by: Admin: 11/24/19 07:27 Dose: 150 mls/hr Documented by: Infusion: 11/24/19 07:24 Dose: 150 mls/hr Documented by: Admin: 11/24/19 00:43 Dose: 150 mls/hr Documented by: YASMINE Acetaminophen (Ofirmev) 750 mg in 75 mls @ 150 mls/hr IV Q6H ALEKSANDER; Protocol Last Infusion: 11/26/19 12:50 Dose: 150 mls/hr Documented by: Admin: 11/26/19 11:35 Dose: 150 mls/hr Documented by: Admin: 11/26/19 05:27 Dose: Not Given Documented by: Admin: 11/26/19 01:56 Dose: Not Given Documented by: Infusion: 11/25/19 18:34 Dose: 150 mls/hr Documented by: Admin: 11/25/19 18:04 Dose: 150 mls/hr Documented by: DANELLE Promethazine HCl (Phenergan) 12.5 mg IV Q4HP PRN; Protocol PRN Reason: Nausea/Vomiting Last Admin: 11/25/19 09:23 Dose: 12.5 mg Documented by: Admin: 11/24/19 23:23 Dose: 12.5 mg Documented by: Admin: 11/24/19 16:06 Dose: 12.5 mg Documented by: MAULIK Shift Summary 11/26/19 16:22 Shift Summary by Veronica Baker Pt A&Ox4 and able to make needs known. Up to BSC or Bathroom with 1 SBA and FWW. Voiding QS with 2 loose BMs. Denies Pain but did take her scheduled Ofirmev. Pt received Potassium Phosphate IV for a potassium level of 3.7. Pt infusing NS@150ml/hr to RFA. Resting at this time. Will update at bedside. Initialized on 11/26/19 16:22 - END OF NOTE
== END 2019-11-26 17:20 | disposition home or self-care (01) ==
LOC: ED 17:53 → MEDSUR 17:53
PROVIDERS: ADMIT Family Medicine Adult Medicine; ATTEND Family Medicine Adult Medicine